=== PATIENT | female | born 1975 | race African-American/Black ===

== ENCOUNTER 2024-11-12 17:48 | Emergency (ER) | payer BC, SELFPAY ==
[2024-11-12] MEDS ORDERED: Ipratropium/Albuterol 3 ML NEB ONE ×2 (18:01→18:20)
[2024-11-12] MEDS ORDERED: predniSONE 20 MG TAB ONE (18:02)
== END 2024-11-12 19:10 | disposition home or self-care (01) ==
LOC: NAV ERS 17:48
DX: J45.901 Unspecified asthma with (acute) exacerbation (principal); I10 Essential (primary) hypertension; E11.9 Type 2 diabetes mellitus without complications; Z79.51 Long term (current) use of inhaled steroids
CPT/HCPCS: J7512; J7620

== ENCOUNTER 2024-12-22 18:38 | Emergency (ER) | payer BC ==
[2024-12-22] MEDS ORDERED: Ipratropium/Albuterol 3 ML NEB ONE ×2 (18:59→19:24)
[2024-12-22] MEDS ORDERED: predniSONE 20 MG TAB ONE (19:18)
== END 2024-12-22 20:03 | disposition home or self-care (01) ==
LOC: NAV ERS 18:38
DX: J45.909 Unspecified asthma, uncomplicated (principal); I10 Essential (primary) hypertension; E11.9 Type 2 diabetes mellitus without complications; Z79.84 Long term (current) use of oral hypoglycemic drugs; Z79.51 Long term (current) use of inhaled steroids; Z79.899 Other long term (current) drug therapy
CPT/HCPCS: 94640; J7512; J7620